=== PATIENT | female | born 1985 | race Hispanic/Latino ===

== ENCOUNTER 2024-09-21 02:22 | Inpatient (IN) | payer OTHER ==
[~2024-09-21] VITALS: Ht 154.9 cm; Wt 65.8 kg
[2024-09-21] VITALS (10 sets, daily range): BP systolic 118–143; BP diastolic 78–98; PULSE 87–107; RESP 16–20; TEMP 97.6–98.8; O2SAT 95–100
[2024-09-21] MEDS ORDERED: IOPAMIDOL 370 MG/ML 100 ML INFUS..BTL INJ ONE (03:00)
[2024-09-21] MEDS: LACTATED RINGER'S 1,000 ML INJ ONE (03:35)
[2024-09-21] MEDS: FAMOTIDINE 20 MG/2 ML VIAL IV ONE (03:36)
[2024-09-21] MEDS: KETOROLAC TROMETHAMINE 30 MG/ML VIAL IV ONE (03:36)
[2024-09-21] MEDS: ONDANSETRON HCL INJ 2MG/ML 2ML 2 MG/ML VIAL IV ONE (03:36)
[2024-09-21] MEDS: SODIUM CHLORIDE 0.9% 1000ML 1,000 ML IV STA (03:49)
[2024-09-21] MEDS ORDERED: DIPHENHYDRAMINE HCL INJ 50 MG/ML VIAL IV PRN (04:15)
[2024-09-21] MEDS ORDERED: Morphine 4mg INJECTION 4 MG/ML INJ IV PRN (04:15)
[2024-09-21] MEDS: SODIUM CHLORIDE 0.9% 1000ML 1,000 ML IV SCH (05:35)
[2024-09-21] MEDS: ONDANSETRON HCL INJ 2MG/ML 2ML 2 MG/ML VIAL IV PRN (07:46)
[2024-09-21] MEDS: Morphine 2mg Syringe 2 MG/ML SYR IV PRN (07:46)
[2024-09-21] MEDS: FAMOTIDINE 20 MG/2 ML VIAL IV SCH (07:46)
[2024-09-21] MEDS ORDERED: ROCURONIUM BROMIDE 1 ML IV ONE (12:54)
[2024-09-21] MEDS ORDERED: FENTANYL CITRATE/PF 100MCG/2 ML INJ ONE (12:54)
[2024-09-21] MEDS ORDERED: PROPOFOL IV EMULSION 10 MG/ML 20 ML VIAL ONE (12:54)
[2024-09-21] MEDS ORDERED: FAMOTIDINE 20 MG/2 ML VIAL IV ONE (12:54)
[2024-09-21] MEDS ORDERED: ACETAMINOPHEN 1000 MG/100 ML 100 ML IV ONE (12:54)
[2024-09-21] MEDS ORDERED: SEVOFLURANE INHAL SOLN 250 ML PEN BTL ONE (12:54)
[2024-09-21] MEDS ORDERED: MIDAZOLAM HCL 2 MG/2 ML VIAL ONE (12:54)
[2024-09-21] MEDS ORDERED: LIDOCAINE HCL 2% LOCAL INJ 5 ML SDV VIAL INJ ONE (12:54)
[2024-09-21] MEDS ORDERED: DEXAMETHASONE SOD PHOS INJ 4 MG/ML SDV ONE (14:11)
[2024-09-21] MEDS ORDERED: ONDANSETRON HCL INJ 2MG/ML 2ML 2 MG/ML VIAL ONE (14:11)
[2024-09-21] MEDS ORDERED: KETOROLAC TROMETHAMINE 30 MG/ML VIAL ONE (14:11)
[2024-09-21] MEDS ORDERED: SUGAMMADEX SODIUM 200 MG/2 ML VIAL IV ONE (14:23)
[2024-09-21] MEDS: PIPERACILLIN/TAZOBACTAM 3.375 GM VIAL ONE (14:25)
[2024-09-21] MEDS ORDERED: LACTATED RINGER'S 1,000 ML ONE (14:40)
[2024-09-21] MEDS ORDERED: ONDANSETRON HCL INJ 2MG/ML 2ML 2 MG/ML VIAL IV PRN (14:45)
[2024-09-21] MEDS ORDERED: TRAMADOL HCL 50 MG TAB PO PRN (14:45)
[2024-09-22] VITALS: BP 121/83; PULSE 91; RESP 20; TEMP 98; O2SAT 100
[2024-09-22 04:00] VITALS: BP 103/69; PULSE 90; RESP 20; TEMP 98.1; O2SAT 100
[2024-09-22] MEDS ORDERED: ULTRAM 50MG50 MG PO (06:46)
[2024-09-22 06:51] VITALS: PULSE 102; RESP 17; O2SAT 100
[2024-09-22 08:58] LABS: BASOPHILS % 0.2 % (0.0-1.0); EOSINOPHILS % 0.0 % (0.0-6.0); LYMPHOCYTES % 9.6 % (18.0-39.1); MONOCYTES % 6.4 % (4.4-11.3); NEUTROPHILS % 83.3 % (38.7-80.0); RED CELL DISTRIBUTION WIDTH 13.2 % (11.7-14.4)
[2024-09-22 09:00] VITALS: BP 108/79; PULSE 84; RESP 17; TEMP 98.1; O2SAT 100
[2024-09-22 09:28] VITALS: BP 108/79; PULSE 84; RESP 18; TEMP 98; O2SAT 99
[2024-09-22 09:49] LABS: EST GLOMERULAR FILTRATION RATE 108.0 ML/MIN (>=60)
[2024-09-22 12:17] VITALS: BP 94/73; PULSE 91; RESP 18; TEMP 98; O2SAT 99
== END 2024-09-22 13:15 | disposition home or self-care (01) | DRG 399 ==
LOC: FSED 02:33 → ERHOLD 03:57 → MED/SURG2 05:03
PROVIDERS: ADMIT Internal Medicine; ATTEND Internal Medicine
PROC: 0DTJ4ZZ Resection of Appendix, Percutaneous Endoscopic Approach (ICD-10-PCS; principal; 2024-09-21 14:00)
DX: K35.80 Unspecified acute appendicitis (principal); Z90.49 Acquired absence of other specified parts of digestive tract
CPT/HCPCS: 36415; 74177; 80048; 80076; 81003; 81025; 83605; 85025; 87040; 87086; 88304; 94799; 99252; 99284; J1100; J1308; J1885; J2003; J2250; J2270; J2405; J2543; J7030; Q9967